=== PATIENT | male | born 1975 | race Caucasian/White ===

== ENCOUNTER 2016-06-14 13:24 | Emergency (ER) | payer MEDICAID, OTHER ==
[~2016-06-14] VITALS: Ht 172.7 cm; Wt 77.0 kg
[2016-06-14 13:27] VITALS: Ht 172.7 cm; Wt 77.0 kg
[2016-06-14] MEDS ORDERED: KETOROLAC 60 MG INJ IM STA (14:30)
--- NOTE | 2016-06-14 15:38 | RADRPT ---
PROCEDURE: XR Chest. CLINICAL INDICATION: Rib pain TECHNIQUE: Single frontal chest x-ray. COMPARISON: None. FINDINGS: The lungs are clear. No focal opacification is seen. The cardiomediastinal silhouette is unremarka ble. The osseous structures are unremarkable. IMPRESSION: 1. Negative frontal chest. RPTAT: TT .Curry Orona MD, MD Date Time Electronically viewed and signed by .Curry Orona MD, on 06/14/2016 15:38 .d/
--- NOTE | 2016-06-14 15:38 | RADRPT ---
PROCEDURE: XR Hand. CLINICAL INDICATION: Fourth finger injury TECHNIQUE: Three views of the right hand were obtained. COMPARISON: No prior studies are available for comparison. FINDINGS: There is a mildly displaced fracture of the volar aspect of the fourth middle phalanx at the PIP lisha nt. There is mild dorsal subluxation of the middle phalanx as well. This is age indeterminate. The re is a small cortical defect at the tuft of the fifth distal phalanx, likely sequelae of remote tra jaime. There is soft tissue swelling over the fourth PIP joint. IMPRESSION: 1. Mildly displaced fracture of the fourth middle phalanx at the PIP joint margin and mild dorsal s ubluxation of the middle phalanx, age indeterminate. 2. Soft tissue swelling over the fourth PIP joint. RPTAT: TT .Curry Orona MD, Date Time Electronically viewed and signed by .Curry Orona MD, on 06/14/2016 15:37 .d/
--- NOTE | 2016-06-14 15:39 | RADRPT ---
PROCEDURE: XR Chest. CLINICAL INDICATION: Rib pain TECHNIQUE: 2 views of the right rib cage are available for review COMPARISON: None available FINDINGS: The osseous structures, articular spaces, and surrounding soft tissues of the right rib cage are int act. No acute fracture or dislocation is seen. No radiopaque foreign body is identified. The visua lized portions of the underlying lung is clear. IMPRESSION: 1. No acute osseous abnormality. RPTAT: TT .Curry Orona MD, Date Time Electronically viewed and signed by .Curry Orona MD, on 06/14/2016 15:38 .d/
[2016-06-14] MEDS ORDERED: IBUP-1542 PO (16:35)
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
[2016-06-14] MEDS ORDERED: OLAN5TAB5 PO (16:55)
[2016-06-14 17:26] VITALS: PULSE 89; RESP 18
== END 2016-06-14 17:27 | disposition home or self-care (01) ==
LOC: FTE 13:24
DX: S29.9XXA Unspecified injury of thorax, initial encounter (principal); S62.624A Displaced fracture of middle phalanx of right ring finger, initial encounter for closed fracture; F17.210 Nicotine dependence, cigarettes, uncomplicated; Y09 Assault by unspecified means
CPT/HCPCS: 29130; 71010; 71100; 73130; 96372; J1885; Z7502

== ENCOUNTER 2016-10-19 00:10 | Emergency (ER) | payer SELFPAY ==
[~2016-10-19 00:10] MED LIST: IBUP-1542 PO; OLAN5TAB5 PO
== END 2016-10-19 05:48 | disposition left against medical advice (07) ==
LOC: E/R 00:10
DX: Z53.21 Procedure and treatment not carried out due to patient leaving prior to being seen by health care provider (principal)

== ENCOUNTER 2016-12-31 09:43 | Emergency (ER) | payer MEDICAID ==
[~2016-12-31] VITALS: Wt 65.0 kg
[2016-12-31] MEDS ORDERED: MUPI22OI2 TOP (09:55)
[2016-12-31] MEDS ORDERED: LORAZEPAM 0.5 MG TAB PO ONE (10:00)
--- NOTE | 2016-12-31 13:50 | ERD ---
ER Documentation Chief Complaint Date/Time DATE: 12/31/16 TIME: 13:44 Chief Complaint rash to gen area. no sob . no stridor. unknown cause. no resp distress HPI 41-year-old man brought in by EMS for homelessness and general loitering. [employer] called 911. Patient states he has a red mildly pruritic rash. He has a long history of recurrent rash has been treated at various times with antibiotics, antiparasitic's, and antifungal's. Response to treatment has been generally uncertain and patient has had this rash over most of his body for many years. Patient denies suicidal homicidal ideation, no fevers or chills, no vomiting or diarrhea. ROS All systems reviewed and are negative except as per history of present illness. Medications Home Meds Active Scripts Mupirocin* (Bactroban*) 2% -22 Gram Oint...g., 1 APPLIC TOP BID for 14 Days, #1 EA Prov:NAVID JARAMILLO MD 12/31/16 Olanzapine* (Zyprexa*) 5 Mg Tablet, 5 MG PO DAILY, #30 TAB Prov:BERT ROJAS PA-C 06/14/16 Ibuprofen* (Motrin*) 600 Mg Tab, 600 MG PO Q6, #30 TAB Prov:BERT ROJAS PA-C 06/14/16 Allergies Allergies: Coded Allergies: No Known Allergy (Unverified , 06/14/16) PMhx/Soc Bipolar disorder, chronic rash History of Surgery: Yes (left wrist surgery and nasal septal surgery) Anesthesia Reaction: No Hx Neurological Disorder: No Hx Respiratory Disorders: No Hx Cardiac Disorders: No Hx Psychiatric Problems: No Hx Miscellaneous Medical Probl: No Hx Alcohol Use: No Hx Substance Use: Yes (occasional marjiana) Hx Tobacco Use: Yes (occasional ciggarette) FmHx Family History: No diabetes Physical Exam Vitals Vital Signs Date Time Temp Pulse Resp B/P Pulse Ox O2 Delivery O2 Flow Rate FiO2 12/31/16 10:26 98.4 88 21 120/88 98 Physical Exam GENERAL: Well-developed, well-nourished, well-hydrated, agitated HEENT: Moist mucous membranes, pink conjunctiva, no cervical spine tenderness or step-off deformities, no goiter, no jaundice or icterus, extraocular movements intact without pain. No submandibular induration, and no pharyngeal erythema NEURO: Alert and oriented 3, cranial nerves II through XII intact bilaterally, pupils equal round reactive to light, no focal deficits or facial asymmetry, sensation intact distally Strength 5/5 in upper and lower extremities bilaterally CARDIAC: Regular rate and rhythm, no murmurs rubs or gallops LUNGS: Clear bilaterally no wheezing crackles or stridor ABDOMEN: Soft nontender, no guarding, no rigidity, no rebound, no psoas sign no obturator sign. Normoactive bowel sounds SKIN: Diffuse maculopapular mildly pruritic rash over the torso and extremities , no serpiginous lesions noted, no ulcers, no purulent discharge EXTREMITIES: No clubbing cyanosis or edema, calves are bilaterally symmetrical, no Homans sign, no popliteal cord sign. Distal pulses equal and bilateral PSYCH: Agitated Results 24 hrs Current Medications Medications (Trade) Dose Ordered Sig/Raheel Route PRN Reason Start Time Stop Time Status Last Admin Dose Admin Lorazepam (Ativan) 0.5 mg ONCE ONCE PO 12/31/16 10:00 12/31/16 10:01 DC Procedures/MDM For agitation I administered lorazepam 0.5 mg p.o. 1. I reviewed his previous medical records. His response to the antifungal and antiparasitic medications have been inconclusive and I do not suspect tinea, bedbugs, pediculosis, Saravia-Kevin syndrome, syphilis, scabies. Patient was offered a shower which he took, and he was given a meal in the ED. Patient feels much better at this time, and vital signs are normal, symptoms have improved. I did give strict instructions to return to the ED if symptoms continue or worsen, patient will otherwise follow-up with primary care physician. Patient understood instructions and agreed to plan. Disclaimer: Inadvertent spelling and grammatical errors are likely due to EHR/ dictation software use and do not reflect on the overall quality of patient care. Also, please note that the electronic time recorded on this note does not necessarily reflect the actual time of the patient encounter. Departure Diagnosis: Primary Impression: Dermatitis Condition: Good Patient Instructions: Dermatitis, Non-Specific NAVID JARAMILLO MD Dec 31, 2016 13:50
== END 2016-12-31 10:35 | disposition home or self-care (01) ==
LOC: E/R 09:43
DX: L30.9 Dermatitis, unspecified (principal); F17.210 Nicotine dependence, cigarettes, uncomplicated
CPT/HCPCS: 99283

== ENCOUNTER 2018-05-30 10:25 | Emergency (ER) | payer OTHER ==
[~2018-05-30] VITALS: Wt 70.0 kg
[2018-05-30 10:35] VITALS: BP 137/90; PULSE 124; RESP 16
[2018-05-30] MEDS ORDERED: CEPH-443 PO (10:52)
[2018-05-30] MEDS ORDERED: SULF1TAB31 PO (10:52)
[2018-05-30] MEDS ORDERED: CEFTRIAXONE 1 GM INJ IM ONE (11:00)
--- NOTE | 2018-05-30 11:09 | ERD ---
ER Documentation Chief Complaint Chief Complaint PT HERE FOR PSYCH EVAL, LEG PAIN, PT WITH FLIGHT OF IDEAS HPI This is a 42-year-old man with a long history of drug abuse and methamphetamine abuse presenting yet again agitated, combative, verbally abusive. He was recently cleared by Dr. Hickey from a psychiatric standpoint as he has no history of suicidal or homicidal ideation and no history of psychiatric holds. He admits to using drugs today and has multiple skin ulcerations from injecting. He denies chest pain or shortness of breath, no fevers or chills, no recent trauma, no vomiting or diarrhea. Although HPI was difficult as patient is aggressive and agitated ROS All systems reviewed and are negative except as per history of present illness. Medications Home Meds Active Scripts Sulfamethoxazole/Trimethoprim* (Bactrim Ds* Tablet) 1 Each Tablet, 1 TAB PO BID, #14 TAB Prov:NAVID JARAMILLO MD 05/30/18 Cephalexin* (Keflex*) 500 Mg Capsule, 500 MG PO QID for 5 Days, CAP Prov:NAVID JARAMILLO MD 05/30/18 Discontinued Scripts Ibuprofen* (Motrin*) 800 Mg Tab, 800 MG PO Q6H PRN for PAIN AND OR ELEVATED TEMP, #30 TAB Prov:ADRIANA MCCRARY DO 11/11/17 Neomycin/Polymyxin/Hydrocort* (Cortisporin* Otic) 10 Ml Susp, 4 DROP LEFT EAR QID for 3 Days, #1 EA Prov:SELENE WIN MD 11/10/17 Allergies Allergies: Coded Allergies: No Known Allergy (Unverified , 11/07/17) PMhx/Soc Medical and Surgical Hx: pt denies Medical Hx, pt denies Surgical Hx History of Surgery: Yes (right wrist and index finger) Anesthesia Reaction: No Hx Neurological Disorder: No Hx Respiratory Disorders: No Hx Cardiac Disorders: No Hx Psychiatric Problems: Yes (DEPRESSION) Hx Miscellaneous Medical Probl: No Hx Alcohol Use: No (pt states he does not drink) Hx Substance Use: Yes (DIET PILLS, MARIJUANA, METH) Hx Tobacco Use: Yes Smoking Status: Current every day smoker FmHx Family History: No diabetes Physical Exam Vitals Vital Signs Date Temp Pulse Resp B/P (MAP) Pulse Ox O2 O2 Flow FiO2 Time Delivery Rate 05/30/18 97.9 124 16 137/90 96 10:35 (106) Physical Exam Const: Agitated, afebrile Head: Atraumatic Eyes: Normal Conjunctiva ENT: Normal External Ears, Nose and Mouth. Neck: Full range of motion. No meningismus. Resp: Clear to auscultation bilaterally Cardio: Tachycardic and regular Abd: Soft, non tender, non distended. Skin: Multiple superficial skin ulcerations consistent with drug injection Back: No midline or flank tenderness Ext: No cyanosis, or edema Neur: Awake and alert Psych: Agitated Results 24 hrs Current Medications Medications Dose Sig/Raheel Start Time Status Last (Trade) Ordered Route PRN Stop Time Admin Dose Reason Admin Ceftriaxone 1 gm ONCE ONCE 05/30/18 DC Sodium IM 11:00 (Rocephin) 05/30/18 11:01 Procedures/MDM Patient presents with acute methamphetamine intoxication, unfortunately for us he is agitated, combative, verbally abusive with staff and shows no appreciation for those trying to help him and no consideration for nearby patients in the ED. He does have multiple prior visits to this ED and has never required inpatient psychiatric management, he is simply a drug abuser who is here acutely intoxicated and attempting to use our emergency department as his personal living room. I and the nurses told him if he stops yelling at staff we can continue with the workup, as I did order an x-ray of the foot to rule out foreign body. He continued to be very loud and disrespectful to those around him so he was escorted out of the emergency department by security. Departure Diagnosis: Primary Impression: Methamphetamine abuse Additional Impression: Malingering Condition: Stable Patient Instructions: Drug Abuse NAVID JARAMILLO MD May 30, 2018 11:09
[2018-06-06] MEDS ORDERED: SULF1TAB31 PO (09:32)
[2018-06-06] MEDS ORDERED: CEPH-443 PO (09:32)
== END 2018-05-30 11:15 | disposition home or self-care (01) ==
LOC: E/R 10:25
DX: F15.10 Other stimulant abuse, uncomplicated (principal); R40.2252 Coma scale, best verbal response, oriented, at arrival to emergency department; R40.2362 Coma scale, best motor response, obeys commands, at arrival to emergency department; R40.2142 Coma scale, eyes open, spontaneous, at arrival to emergency department; F17.210 Nicotine dependence, cigarettes, uncomplicated; Z76.5 Malingerer [conscious simulation]
CPT/HCPCS: 99283

== ENCOUNTER 2018-06-19 10:01 | Emergency (ER) | payer OTHER ==
[~2018-06-19] VITALS: Ht 170.2 cm; Wt 70.4 kg
[~2018-06-19 10:01] MED LIST changes: +CEPH-443 PO; -IBUP-1542 PO; -OLAN5TAB5 PO; +SULF1TAB31 PO
[2018-06-19 10:03] VITALS: Ht 170.2 cm; Wt 70.4 kg
[2018-06-19] MEDS ORDERED: BACITRACIN 0.9 GM OINT TOP ONE (18:00)
--- NOTE | 2018-06-19 18:06 | PSY ---
Date/Time of Note Date/Time of Note DATE: 06/19/18 TIME: 18:03 Psychiatric Subjective Eval Consent Pt consented to telemedicine: Yes Subjective Evaluation Patient location: emergency Chief Complaint: FINGER PAIN - TRANSIENT; TALKING TO HIMSELF, ACTING WEIRD History of present illness 42 yo homeless male presents to ed c/o finger infection; pt is agitated, loud, tangential, paranoid, grandiose. He denies SI or hi; he say she is here for finger infection and because he needs "money.. money is a time space continuum". Pt is itnermittently yelling out and using profanities, not able to state where he will go and how he will provide food, [facility], clothing. Admits to meth and thc use. Past psychiatric history multiple inpt; last intp was 3 months ago Hospitalization: yes Family History denies Medical history Problems Medical Problems: (1) Arthralgia Status: Acute (2) Blister of foot Status: Acute (3) Dermatitis Status: Acute (4) Drug abuse Status: Acute (5) Finger fracture, right Status: Acute (6) Foreign body in left ear Status: Acute (7) Homeless Status: Acute (8) Homelessness Status: Acute (9) Knee sprain Status: Acute (10) Malingering Status: Acute (11) Medical clearance for incarceration Status: Acute (12) Methamphetamine abuse Status: Acute (13) Methamphetamine abuse Status: Acute (14) Paronychia Status: Acute (15) Patient left without being seen Status: Acute (16) Rib pain Status: Acute (17) Tachycardia Status: Acute Allergies: Coded Allergies: No Known Allergy (Unverified , 06/19/18) Substance Abuse Substance abuse history: Yes Prior substance abuse treatmen: Yes Social History Marital status: single Level of education: hs DPA/Conservatorship: No Occupation/Prison: homeless Psychiatric Objective Eval Review of Systems: Review of Systems: Not Applicable Mental Status Examination: Appearance: Poor Hygiene Eye Contact: Fair Psychomotor Activity: Agitated Behavior: Hostile, Guarded Speech: Pressured, Loud AFFECT: Libile Mood: Irritable, Expansive Though Process: Tangential Thought Content: Delusions Suicidal: No Homicidal: No On 72 hour hold: No Orientation: x4 Cognition: Alert Insight: Impared Judgement: Impared Laboratory Results Laboratory Tests Test 06/19/18 16:23 06/19/18 16:25 White Blood Count 5.7 10^3/ul Red Blood Count 4.79 10^6/ul Hemoglobin 13.9 g/dl Hematocrit 42.1 % Mean Corpuscular Volume 87.9 fl Mean Corpuscular Hemoglobin 29.0 pg Mean Corpuscular Hemoglobin Concent 33.0 g/dl Red Cell Distribution Width 13.1 % Platelet Count 236 10^3/UL Mean Platelet Volume 8.9 fl Immature Granulocytes % 1.100 % Neutrophils % 56.2 % Lymphocytes % 30.1 % Monocytes % 10.0 % Eosinophils % 1.9 % Basophils % 0.7 % Nucleated Red Blood Cells % 0.0 /100WBC Immature Granulocytes # 0.060 10^3/ul Neutrophils # 3.2 10^3/ul Lymphocytes # 1.7 10^3/ul Monocytes # 0.6 10^3/ul Eosinophils # 0.1 10^3/ul Basophils # 0.0 10^3/ul Nucleated Red Blood Cells # 0.0 10^3/ul Sodium Level 139 mmol/L Potassium Level 4.0 mmol/L Chloride Level 100 mmol/L Carbon Dioxide Level 30 mmol/L Anion Gap 9 Blood Urea Nitrogen 16 mg/dl Creatinine 1.03 mg/dl Est Glomerular Filtrat Rate mL/min > 60 mL/min Glucose Level 91 mg/dl Calcium Level 9.0 mg/dl Total Bilirubin 0.9 mg/dl Direct Bilirubin 0.00 mg/dl Indirect Bilirubin 0.9 mg/dl Aspartate Amino Transf (AST/SGOT) 30 IU/L Alanine Aminotransferase (ALT/SGPT) 29 IU/L Alkaline Phosphatase 75 IU/L Total Protein 7.6 g/dl Albumin 4.1 g/dl Globulin 3.50 g/dl Albumin/Globulin Ratio 1.17 Salicylates Level < 1.0 mg/dl Acetaminophen Level < 10.0 ug/ml Ethyl Alcohol Level < 10.0 mg/dl Urine Color YELLOW Urine Clarity CLEAR Urine pH 5.0 Urine Specific [place] 1.031 Urine Ketones TRACE mg/dL Urine Nitrite NEGATIVE mg/dL Urine Bilirubin NEGATIVE mg/dL Urine Urobilinogen NEGATIVE mg/dL Urine Leukocyte Esterase NEGATIVE Mg/ul Urine Hemoglobin NEGATIVE mg/dL Urine Glucose NEGATIVE mg/dL Urine Total Protein NEGATIVE mg/dl Assessment and Plan Assessment/Diagnosis Diagnosis Unspecified psychosis. Recommendation/Plan Medication Management Zyprexa 10 mg + Ativan 2 mg + Benadryl 50 mg IM prn q 12 hrs agitation Discharge Disposition: Psychiatric inpatient Legal Status: Place involuntary hold JEROME LAROSE MD Jun 19, 2018 18:06
--- NOTE | 2018-06-19 21:37 | ERD ---
ER Documentation Chief Complaint Chief Complaint FINGER PAIN - TRANSIENT; TALKING TO HIMSELF, ACTING WEIRD HPI This is a 42-year-old male with a past medical history of depression, bipolar disorder, methamphetamine and marijuana abuse who is presenting with concerns of grave disability. The patient's personal complaint is related to a scab to his finger. He is concerned that it could be infected. However, on evaluation of the patient he is unable to provide a clear history. He is tangential and grandiose and it is difficult to redirect him. He is also quite agitated and aggressive. The patient does endorse homelessness. He also admits to methamphetamine and marijuana abuse recently. The patient talks to himself in t he room, so it is unclear if he has auditory or visual hallucinations. History and physical is limited secondary to altered mentation. ROS Limited secondary to altered mentation Medications Home Meds Discontinued Scripts Cephalexin* (Keflex*) 500 Mg Capsule, 500 MG PO QID for 7 Days, CAP Prov:MARAH DIANE MD 06/06/18 Sulfamethoxazole/Trimethoprim* (Bactrim Ds* Tablet) 1 Each Tablet, 1 TAB PO BID, #14 TAB Prov:MARAH DIANE MD 06/06/18 Sulfamethoxazole/Trimethoprim* (Bactrim Ds* Tablet) 1 Each Tablet, 1 TAB PO BID, #14 TAB Prov:NAVID JARAMILLO MD 05/30/18 Cephalexin* (Keflex*) 500 Mg Capsule, 500 MG PO QID for 5 Days, CAP Prov:NAVID JARAMILLO MD 05/30/18 Allergies Allergies: Coded Allergies: No Known Allergy (Unverified , 06/19/18) PMhx/Soc History of Surgery: Yes (right wrist and index finger) Anesthesia Reaction: No Hx Neurological Disorder: No Hx Respiratory Disorders: No Hx Cardiac Disorders: No Hx Psychiatric Problems: Yes (DEPRESSION, bipolar) Hx Miscellaneous Medical Probl: No Hx Alcohol Use: Yes (occassional) Hx Substance Use: Yes (DIET PILLS, MARIJUANA, METH, speed) Hx Tobacco Use: Yes Smoking Status: Current every day smoker FmHx Patient is unable to provide a family history Physical Exam Vitals Vital Signs Date Temp Pulse Resp B/P (MAP) Pulse Ox O2 O2 Flow FiO2 Time Delivery Rate 06/19/18 98.3 92 21 131/75 100 Room Air 15:46 (93) 06/19/18 98.3 107 23 148/75 100 10:03 (99) Physical Exam Const: No apparent distress, well-developed, well-nourished Head: Normocephalic, Atraumatic Eyes: Normal Conjunctiva. Extraocular movements intact. Pupils equal, round a nd reactive to light ENT: Normal External Ears, Nose and Mouth. Neck: Full range of motion. No meningismus. Resp: Clear to auscultation bilaterally, No wheezes, rales or rhonchi Cardio: Regular rate and rhythm. No murmurs, rubs or gallops Abd: Soft, non tender, non distended. Normal bowel sounds Skin: No petechiae or rashes Back: No midline tenderness. No CVA tenderness Ext: No cyanosis, or edema. Scab to the left middle finger without edema or erythema or induration or purulence. Neur: Awake and alert, oriented 1. Cranial nerves intact. No facial droop. Normal strength, sensation and coordination. Psych: Agitated, aggressive, bizarre, tangential, grandiose Result Diagram: 06/19/18 1623 06/19/18 1623 Results 24 hrs Laboratory Tests Test 06/19/18 16:23 06/19/18 16:25 White Blood Count 5.7 10^3/ul Red Blood Count 4.79 10^6/ul Hemoglobin 13.9 g/dl Hematocrit 42.1 % Mean Corpuscular Volume 87.9 fl Mean Corpuscular Hemoglobin 29.0 pg Mean Corpuscular Hemoglobin Concent 33.0 g/dl Red Cell Distribution Width 13.1 % Platelet Count 236 10^3/UL Mean Platelet Volume 8.9 fl Immature Granulocytes % 1.100 % Neutrophils % 56.2 % Lymphocytes % 30.1 % Monocytes % 10.0 % Eosinophils % 1.9 % Basophils % 0.7 % Nucleated Red Blood Cells % 0.0 /100WBC Immature Granulocytes # 0.060 10^3/ul Neutrophils # 3.2 10^3/ul Lymphocytes # 1.7 10^3/ul Monocytes # 0.6 10^3/ul Eosinophils # 0.1 10^3/ul Basophils # 0.0 10^3/ul Nucleated Red Blood Cells # 0.0 10^3/ul Sodium Level 139 mmol/L Potassium Level 4.0 mmol/L Chloride Level 100 mmol/L Carbon Dioxide Level 30 mmol/L Anion Gap 9 Blood Urea Nitrogen 16 mg/dl Creatinine 1.03 mg/dl Est Glomerular Filtrat Rate mL/min > 60 mL/min Glucose Level 91 mg/dl Calcium Level 9.0 mg/dl Total Bilirubin 0.9 mg/dl Direct Bilirubin 0.00 mg/dl Indirect Bilirubin 0.9 mg/dl Aspartate Amino Transf (AST/SGOT) 30 IU/L Alanine Aminotransferase (ALT/SGPT) 29 IU/L Alkaline Phosphatase 75 IU/L Total Protein 7.6 g/dl Albumin 4.1 g/dl Globulin 3.50 g/dl Albumin/Globulin Ratio 1.17 Salicylates Level < 1.0 mg/dl Acetaminophen Level < 10.0 ug/ml Ethyl Alcohol Level < 10.0 mg/dl Urine Color YELLOW Urine Clarity CLEAR Urine pH 5.0 Urine Specific [place] 1.031 Urine Ketones TRACE mg/dL Urine Nitrite NEGATIVE mg/dL Urine Bilirubin NEGATIVE mg/dL Urine Urobilinogen NEGATIVE mg/dL Urine Leukocyte Esterase NEGATIVE Mg/ul Urine Hemoglobin NEGATIVE mg/dL Urine Glucose NEGATIVE mg/dL Urine Total Protein NEGATIVE mg/dl Urine Opiates Screen NEGATIVE Urine Barbiturates NEGATIVE Urine Amphetamines Screen POSITIVE Urine Benzodiazepines Screen NEGATIVE Urine Cocaine Screen NEGATIVE Urine Cannabinoids NEGATIVE Current Medications Medications Dose Sig/Raheel Start Time Status Last (Trade) Ordered Route PRN Stop Time Admin Dose Reason Admin Bacitracin 1 applic ONCE ONCE 06/19/18 DC 06/19/18 (Bacitracin TOP 18:00 17:50 Oint (Ud)) 06/19/18 18:01 Procedures/MDM MDM The patient's presentation warrants further investigation. Previous medical records, if available, were reviewed. LABS The patient's laboratory testing was obtained and reviewed. No emergent treatment was required unless described below. CBC: No E/o of systemic infection or severe anemia or thrombocytopenia CMP: No E/o severe acidosis or alkalosis or renal failure or liver disease or diabetic ketoacidosis Urine: No E/o acute infection or hematuria Tox: No E/o alcohol abuse. E/o methamphetamine abuse. No E/o salicylate or acetaminophen use. TREATMENT/DISPOSITION The patient's workup included a medical screening examination, laboratory analysis, and diagnostic imaging such as EKG, chest x-ray or CT brain as indicated. The patient's laboratory analysis, diagnostic imaging do not suggest an acute organic pathology. At this time I believe the patient's presentation is consistent with underlying psychiatric illness and likely exacerbation of this illness and/or psychosis. I have a much lower clinical concern for delirium or acute organic pathology such as toxicologic, metabolic, ischemic, intracranial hemorrhage, infectious process. However, we must rule this out prior to relying a diagnosis of underlying psychiatric illness. The patient is medically cleared for psychiatric evaluation. The patient did have a scabbed lesion to his finger. Bacitracin was applied. I do not see evidence of an infection. The patient does not require antibiotics. A tetanus shot was ordered. I kept the patient and/or family informed of laboratory and diagnostic imaging results throughout the emergency room course. The patient did not require any physical or chemical restraint while under my care. Psychiatric consultation: Telemetry medicine psychiatry has been consulted on this case to evaluate the patient for possible acute psychiatric illness that would require inpatient hospitalization. Their concerns of acute psychosis and grave disability, and the psychiatrist recommended an involuntary hold. Medication recommendations will be addressed. The patient was given a dose of Zyprexa. The patient is currently pending PET team evaluation. The patient will be signed out to the oncoming physician. The patient was signed out to Dr. Park at 9PM on 06/19/2018. If the patient is ultimately cleared and discharged, the patient will require social work consultation for homeless resources in accordance with our hospital protocol. Social work is aware. That said, I anticipate that the patient will require admission to a psychiatric facility. OBSERVATION NOTE Time: 4 hours Family Hx: No Diabetes Evaluation: Multiple exams showed improving symptoms and no evidence of worsening psychosis Disclaimer: Inadvertent spelling and grammatical errors are likely due to EHR/dictation software use and do not reflect on the overall quality of patient care. Note that the electronic time recorded on this note does not necessarily reflect the actual time of the patient encounter. Departure Diagnosis: Primary Impression: Acute psychosis Additional Impressions: Methamphetamine abuse Grave disability Finger lesion Homeless Condition: Serious JAMIE WORKMAN MD Jun 19, 2018 21:36
[2018-06-19] MEDS ORDERED: OLANZAPINE 5 MG TAB PO ONE (22:00)
[2018-06-19] MEDS ORDERED: DIPHTH/TET/ACEL PERTUSS (ADULT) 0.5 ML VIAL IM* ONE (22:00)
[2018-06-20 09:58] VITALS: BP 131/88; PULSE 110; RESP 16
[2018-06-20] MEDS ORDERED: OLANZAPINE 10 MG VIAL IM ONE (11:00)
--- NOTE | 2018-06-20 11:30 | NUR ---
SS Note: Transport was at bedside, however, pt agitated making a scene and refusing to leave. Stated he just came for his finger and does not want to go to a psych facility. SW provided verbal de-escalation and explained to pt the psychiatrists recommendation and transfer process. SW informed pt he will be reassessed by a psychiatrist at the facility and will clear pt if he does not meet criteria. Pt eventually agreed to go on the rney for transport.
== END 2018-06-20 11:39 ==
LOC: E/R 10:01
DX: F23 Brief psychotic disorder (principal); F17.210 Nicotine dependence, cigarettes, uncomplicated; F15.10 Other stimulant abuse, uncomplicated; L98.9 Disorder of the skin and subcutaneous tissue, unspecified; F79 Unspecified intellectual disabilities; Z59.0 Homelessness; Z23 Encounter for immunization
CPT/HCPCS: 80053; 80307; 81003; 85025; 90471; 90715; 96372; Z7502; Z7610

== ENCOUNTER 2018-07-18 16:06 | Emergency (ER) | payer OTHER ==
[~2018-07-18] VITALS: Ht 170.2 cm; Wt 70.0 kg
[2018-07-18 17:21] VITALS: Ht 170.2 cm; Wt 70.0 kg
--- NOTE | 2018-07-18 22:32 | ERD ---
ER Documentation Chief Complaint Chief Complaint DRUG USE X TODAY HPI 43-year-old man with a long history of psychiatric illness and probably substance drug abuse including methamphetamines presents with running in traffic today, agitated, bizarre affect on his birthday. It seemed to EMS and officers that he wanted to kill himself and he was a threat to himself so he was placed on a 5150 psychiatric hold and brought here for medical clearance. Patient denies fevers or chills, no vomiting no diarrhea, no trauma. HPI limited due to patient being uncooperative and intoxicated but it was thoroughly supplemented by speaking to EMS and officers were at the scene. Patient has had multiple prior ED evaluations and psychiatric consultations ROS All systems reviewed and are negative except as per history of present illness. Medications Home Meds No Active Prescriptions or Reported Meds Allergies Allergies: Coded Allergies: No Known Allergy (Unverified , 07/18/18) PMhx/Soc Medical and Surgical Hx: pt denies Medical Hx, pt denies Surgical Hx History of Surgery: Yes (right wrist and index finger) Anesthesia Reaction: No Hx Neurological Disorder: No Hx Respiratory Disorders: No Hx Cardiac Disorders: No Hx Psychiatric Problems: Yes (RECREATIONAL METHAMPHETAMINE USE) Hx Miscellaneous Medical Probl: No Hx Alcohol Use: No Hx Substance Use: Yes (METHAMPHETAMINE ) Hx Tobacco Use: No Smoking Status: Current some day smoker FmHx Family History: No diabetes Physical Exam Vitals Vital Signs Date Temp Pulse Resp B/P (MAP) Pulse Ox O2 O2 Flow FiO2 Time Delivery Rate 07/18/18 98.9 89 20 151/98 99 17:21 (115) 07/18/18 98.9 89 20 151/98 99 Room Air 17:21 (115) Physical Exam Const: Anxious, appears intoxicated, afebrile Head: Atraumatic Eyes: Normal Conjunctiva ENT: Normal External Ears, Nose and Mouth. Neck: Full range of motion. No meningismus. Resp: Clear to auscultation bilaterally Cardio: Regular rate and rhythm, no murmurs Abd: Soft, non tender, non distended. Normal bowel sounds Skin: No petechiae or rashes Back: No midline or flank tenderness Ext: No cyanosis, or edema Neur: Awake and alert x1, no focal deficits or facial asymmetry Psych: Anxious Result Diagram: 07/18/18 1639 07/18/18 1639 Results 24 hrs Laboratory Tests Test 3/15/19 16:39 White Blood Count 6.2 10^3/ul Red Blood Count 4.03 10^6/ul Hemoglobin 11.7 g/dl Hematocrit 34.6 % Mean Corpuscular Volume 85.9 fl Mean Corpuscular Hemoglobin 29.0 pg Mean Corpuscular Hemoglobin Concent 33.8 g/dl Red Cell Distribution Width 13.0 % Platelet Count 203 10^3/UL Mean Platelet Volume 9.4 fl Immature Granulocytes % 0.600 % Neutrophils % 69.9 % Lymphocytes % 18.3 % Monocytes % 9.8 % Eosinophils % 1.1 % Basophils % 0.3 % Nucleated Red Blood Cells % 0.0 /100WBC Immature Granulocytes # 0.040 10^3/ul Neutrophils # 4.4 10^3/ul Lymphocytes # 1.1 10^3/ul Monocytes # 0.6 10^3/ul Eosinophils # 0.1 10^3/ul Basophils # 0.0 10^3/ul Nucleated Red Blood Cells # 0.0 10^3/ul Sodium Level 138 mmol/L Potassium Level 3.6 mmol/L Chloride Level 105 mmol/L Carbon Dioxide Level 25 mmol/L Anion Gap 8 Blood Urea Nitrogen 19 mg/dl Creatinine 0.95 mg/dl Est Glomerular Filtrat Rate mL/min > 60 mL/min Glucose Level 102 mg/dl Calcium Level 8.9 mg/dl Total Bilirubin 0.8 mg/dl Direct Bilirubin 0.00 mg/dl Indirect Bilirubin 0.8 mg/dl Aspartate Amino Transf (AST/SGOT) 77 IU/L Alanine Aminotransferase (ALT/SGPT) 63 IU/L Alkaline Phosphatase 82 IU/L Total Protein 6.8 g/dl Albumin 3.7 g/dl Globulin 3.10 g/dl Albumin/Globulin Ratio 1.19 Salicylates Level < 1.0 mg/dl Acetaminophen Level < 10.0 ug/ml Ethyl Alcohol Level < 10.0 mg/dl Procedures/MDM Patient was already on a psychiatric 5150 hold. CBC and electrolytes were normal, liver function tests were normal, aspirin Tylenol levels and ethanol levels negative. Observation Note: Time: 6 hours Family Hx: No Hypertension Evaluation: Multiple exams showed improving symptoms and no evidence of worsening mental status Patient's behavioral symptoms have stabilized while in the department. Patient is medically cleared and appropriate for psychiatric evaluation and work up. No e/o neurologic, toxic, infectious, or metabolic cause. Patient has a long history of methamphetamine use and psychiatric illness and will be transferred to [facility] psychiatric facility Departure Diagnosis: Primary Impression: Psychosis Additional Impression: Methamphetamine abuse Condition: NAVID Fraizer MD Jul 18, 2018 22:32
--- NOTE | 2018-07-19 05:08 | EN ---
Date/Time of Note Date/Time of Note DATE: 07/19/18 TIME: 05:07 ER Progress Note Observation Note: Time: 4 hours Family Hx: No Hypertension Evaluation: Patient resting comfortably and still awaiting placement at this time.] ESTEPHANIA CORDON DO Jul 19, 2018 05:08
[2018-07-19] MEDS ORDERED: MIDAZOLAM 1 MG/ML 2 ML INJ IM ONE (12:00)
[2018-07-19] MEDS ORDERED: DIPHENHYDRAMINE 50 MG INJ IM ONE (12:00)
[2018-07-19] MEDS ORDERED: HALOPERIDOL 5 MG INJ IM ONE (12:00)
--- NOTE | 2018-07-19 14:51 | EN ---
Date/Time of Note Date/Time of Note DATE: 07/19/18 TIME: 14:50 ER Progress Note Observation Note: Time: 4 hours Family Hx: Evaluation: Patient is currently on a psychiatric hold awaiting placement, he did become agitated, and required medical sedation, he is remained hemodynamically stable, he is medically cleared NAVID OCONNELL MD Jul 19, 2018 14:51
--- NOTE | 2018-07-19 19:51 | EN ---
Date/Time of Note Date/Time of Note DATE: 07/19/18 TIME: 19:50 ER Progress Note Psychiatric Observation Note: Indication: Suicidal ideation Duration: Greater than 20 hours Family history: As documented in original HPI The patient was observed with serial exams over the above timeframe. The patient continued to be well-appearing, and observation continued without complication. All other needs have been met during emergency department stay. Routine psychiatric medications ordered: Not requested Hold status: Currently on 5150 hold Placement status: The patient was placed on a hold by the police officers. However the whole did not have language that suggested the patient could be admitted to any facility. P [facility] was called to reevaluate the patient and his deemed the patient appropriate for 5150 hold. A new hold has been written. Patient is pending placement. LINA SANTILLAN MD Jul 19, 2018 19:51
--- NOTE | 2018-07-19 20:56 | PSY ---
Date/Time of Note Date/Time of Note DATE: 07/19/18 TIME: 20:46 Psychiatric Subjective Eval Subjective Evaluation Patient location: emergency Chief Complaint: DRUG USE X TODAY Reason for consult: DRUG USE History of present illness He stated he is "not at all fine" and is in pain. He stated, "I'm God, and that's why." He stated he is in pain from walking around too much and stated he needs a place to live on his own. He stated that he is God but yet we all are God. 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 When asked about current suicidal thoughts he stated, "Kind of, nobody is listening to me, I need to get 100% service connection for my post traumatic stress disorder." [facility]. He stated if he doesn't get 100% he will have to "start doing some serious thinking, and that is something that you don't want me to do." When asked if he meant violence he stated, "Not at all, it slows you down, that's all I have to say." When asked about hallucinations he stated again that his feet are hurting badly. He then started talking about needing someone to care for him. Past psychiatric history He stated he has PTSD. He stated he was on medications, but "they were not good for me - I don't need any of those." +Past admissions - "countless times." Hospitalization: Suicidal Attempt(s) ("Kind of, in a way, but it was sub consciously.") Family History RAMON Medical history Problems Medical Problems: (1) Acute psychosis Status: Acute (2) Arthralgia Status: Acute (3) Blister of foot Status: Acute (4) Dermatitis Status: Acute (5) Drug abuse Status: Acute (6) Finger fracture, right Status: Acute (7) Finger lesion Status: Acute (8) Foreign body in left ear Status: Acute (9) Grave disability Status: Acute (10) Homeless Status: Acute (11) Homeless Status: Acute (12) Homelessness Status: Acute (13) Knee sprain Status: Acute (14) Malingering Status: Acute (15) Medical clearance for incarceration Status: Acute (16) Methamphetamine abuse Status: Acute (17) Methamphetamine abuse Status: Acute (18) Methamphetamine abuse Status: Acute (19) Methamphetamine abuse Status: Acute (20) Paronychia Status: Acute (21) Patient left without being seen Status: Acute (22) Psychosis Status: Acute (23) Rib pain Status: Acute (24) Tachycardia Status: Acute Allergies: Coded Allergies: No Known Allergy (Unverified , 07/18/18) Substance Abuse Substance use: other (Meth - "Of course.") Substance abuse history: Yes Prior substance abuse treatmen: No Social History Marital status: single DPA/Conservatorship: No Occupation/Long Term: Homeless, stated he gets "non-service connection" right now. Psychiatric Objective Eval Mental Status Examination: Appearance: Disheveled Eye Contact: Fair Psychomotor Activity: Normal Behavior: Suspicious, Guarded Speech: Disorganized AFFECT: Guarded Mood: Irritable Though Process: Tangential Thought Content: Delusions Suicidal: Yes (Said yes but then gave a disorganized response when asked for more details) Homicidal: No On 72 hour hold: Yes Orientation: x3 Insight: Impared Judgement: Impared Attention Span: Intact Laboratory Results Laboratory Tests Test 07/18/18 16:39 07/19/18 00:30 White Blood Count 6.2 10^3/ul Red Blood Count 4.03 10^6/ul Hemoglobin 11.7 g/dl Hematocrit 34.6 % Mean Corpuscular Volume 85.9 fl Mean Corpuscular Hemoglobin 29.0 pg Mean Corpuscular Hemoglobin Concent 33.8 g/dl Red Cell Distribution Width 13.0 % Platelet Count 203 10^3/UL Mean Platelet Volume 9.4 fl Immature Granulocytes % 0.600 % Neutrophils % 69.9 % Lymphocytes % 18.3 % Monocytes % 9.8 % Eosinophils % 1.1 % Basophils % 0.3 % Nucleated Red Blood Cells % 0.0 /100WBC Immature Granulocytes # 0.040 10^3/ul Neutrophils # 4.4 10^3/ul Lymphocytes # 1.1 10^3/ul Monocytes # 0.6 10^3/ul Eosinophils # 0.1 10^3/ul Basophils # 0.0 10^3/ul Nucleated Red Blood Cells # 0.0 10^3/ul Sodium Level 138 mmol/L Potassium Level 3.6 mmol/L Chloride Level 105 mmol/L Carbon Dioxide Level 25 mmol/L Anion Gap 8 Blood Urea Nitrogen 19 mg/dl Creatinine 0.95 mg/dl Est Glomerular Filtrat Rate mL/min > 60 mL/min Glucose Level 102 mg/dl Calcium Level 8.9 mg/dl Total Bilirubin 0.8 mg/dl Direct Bilirubin 0.00 mg/dl Indirect Bilirubin 0.8 mg/dl Aspartate Amino Transf (AST/SGOT) 77 IU/L Alanine Aminotransferase (ALT/SGPT) 63 IU/L Alkaline Phosphatase 82 IU/L Total Protein 6.8 g/dl Albumin 3.7 g/dl Globulin 3.10 g/dl Albumin/Globulin Ratio 1.19 Salicylates Level < 1.0 mg/dl Acetaminophen Level < 10.0 ug/ml Ethyl Alcohol Level < 10.0 mg/dl Urine Color YELLOW Urine Clarity CLEAR Urine pH 6.0 Urine Specific [place] 1.024 Urine Ketones 1+ mg/dL Urine Nitrite NEGATIVE mg/dL Urine Bilirubin NEGATIVE mg/dL Urine Urobilinogen NEGATIVE mg/dL Urine Leukocyte Esterase NEGATIVE Mg/ul Urine Hemoglobin NEGATIVE mg/dL Urine Glucose NEGATIVE mg/dL Urine Total Protein NEGATIVE mg/dl Urine Opiates Screen Negative Urine Barbiturates Negative Urine Amphetamines Screen POSITIVE Urine Benzodiazepines Screen Negative Urine Cocaine Screen Negative Urine Cannabinoids Negative Assessment and Plan Assessment/Diagnosis Diagnosis Unspecified Psychosis Recommendation/Plan Medication Management Consider Zyprexa 5mg BID for psychosis Multiple antipsychotics: No Discharge Disposition: Psychiatric inpatient Legal Status: Continue involuntary hold WILL JONES MD Jul 19, 2018 20:56
[2018-07-19] MEDS ORDERED: OLANZAPINE (ODT) 5 MG TAB ODT SCH (21:00)
[2018-07-20 06:10] VITALS: BP 138/98; PULSE 95; RESP 18
== END 2018-07-20 06:20 ==
LOC: E/R 16:06
DX: F29 Unspecified psychosis not due to a substance or known physiological condition (principal); F15.10 Other stimulant abuse, uncomplicated; F17.210 Nicotine dependence, cigarettes, uncomplicated; R40.2132 Coma scale, eyes open, to sound, at arrival to emergency department; R40.2342 Coma scale, best motor response, flexion withdrawal, at arrival to emergency department; R40.2242 Coma scale, best verbal response, confused conversation, at arrival to emergency department
CPT/HCPCS: 80053; 80307; 81003; 85025; J1200; J1630; J2250; Z7610; 36415; 96372